=== PATIENT | male | born 1995 | race Caucasian/White ===

== ENCOUNTER 2019-11-06 00:49 | Emergency (ER) | payer OTHER ==
[~2019-11-06] VITALS: Ht 175.3 cm; Wt 94.0 kg
[2019-11-06 00:50] VITALS: BP 145/98
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
[2019-11-06] MEDS ORDERED: IV NORMAL SALINE 1,000ML 1,000 ML IV ONE (01:15)
[2019-11-06] MEDS ORDERED: LIDOCAINE 1%/EPI 1:100,000 20 ML VIAL. IJ ONE (01:45)
[2019-11-06] MEDS ORDERED: LIDOCAINE 1% Multi-Dose 20 ML VIAL. ONE (01:46)
[2019-11-06] MEDS ORDERED: DIPH,PERTUSS(ACELL),TET VAC/PF 0.5 ML SYRINGE. VAX IM ONE (02:15)
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
[2019-11-06 02:28] LABS: BASO # 0.1 x10^3/uL (0.0-0.2); BASO % 0 % (0-3); EOS # 0.2 x10^3/uL (0.0-0.7); EOS % 1 % (0-3); HEMATOCRIT 45.5 % (39.0-53.0); HEMOGLOBIN 15.2 g/dL (13.0-17.5); LYMPH # 1.2 x10^3/uL (1.0-4.8); LYMPH % 9 % (24-48); MEAN CORPUSCULAR HEMOGLOBIN 29 pg (25-35); MEAN CORPUSCULAR HGB CONC 34 g/dL (31-37); MEAN CORPUSCULAR VOLUME 87 fL (79-100); MONO # 0.8 x10^3/uL (0.0-1.1); MONO % 6 % (0-9); NEUT # 11.6 x10^3uL (1.8-7.7); NEUT % 84 % (31-73); PLATELET COUNT 216 x10^3/uL (140-400); RED BLOOD COUNT 5.21 x10^6/uL (4.30-5.70); RED CELL DISTRIBUTION WIDTH 13.3 % (11.5-14.5); WHITE BLOOD COUNT 13.8 x10^3/uL (4.0-11.0)
[2019-11-06 02:36] LABS: CALCIUM 8.1 mg/dL (8.5-10.1); CREATININE 1.2 mg/dL (0.7-1.3); GFR 73.8; POTASSIUM 3.6 mmol/L (3.5-5.1)
[2019-11-06 02:41] LABS: ALBUMIN 3.5 g/dL (3.4-5.0); ALBUMIN/GLOBULIN RATIO 1.1 (1.0-1.7); TOTAL BILIRUBIN 0.2 mg/dL (0.2-1.0); TOTAL PROTEIN 6.6 g/dL (6.4-8.2)
== END 2019-11-06 02:50 | disposition home or self-care (01) ==
LOC: ER 00:49
DX: S05.31XA Ocular laceration without prolapse or loss of intraocular tissue, right eye, initial encounter (principal); S80.212A Abrasion, left knee, initial encounter; Y08.89XA Assault by other specified means, initial encounter; Y93.89 Activity, other specified; Y92.89 Other specified places as the place of occurrence of the external cause; Y99.8 Other external cause status
CPT/HCPCS: 12011; 36415; 70450; 70486; 80053; 85025; 90471; 90715; 96360; 99285; J7030